=== PATIENT | male | born 1965 | race Caucasian/White ===

== ENCOUNTER 2017-08-18 06:54 | Outpatient (CLI) | payer OTHER ==
[~2017-08-18 06:54] MED LIST: AVAPRO75 MG; LIPIODOL10 ML; LIPITOR20 MG; PNEU16DI2
== END 2017-08-18 07:35 | disposition home or self-care (01) ==
LOC: LAB 06:54
DX: Z12.11 Encounter for screening for malignant neoplasm of colon (principal); N39.0 Urinary tract infection, site not specified; E78.1 Pure hyperglyceridemia; I10 Essential (primary) hypertension; E78.00 Pure hypercholesterolemia, unspecified; E03.8 Other specified hypothyroidism; E11.9 Type 2 diabetes mellitus without complications; E29.1 Testicular hypofunction

== ENCOUNTER 2021-03-13 06:47 | Outpatient (CLI) | payer OTHER | END 2021-03-13 07:04 | disposition home or self-care (01) | LOC: LAB 06:47 | PROVIDERS: ATTEND Internal Medicine Cardiovascular Disease | DX: I10 Essential (primary) hypertension (principal); N39.0 Urinary tract infection, site not specified; E11.9 Type 2 diabetes mellitus without complications; E03.8 Other specified hypothyroidism; E78.2 Mixed hyperlipidemia; E78.1 Pure hyperglyceridemia ==

== ENCOUNTER 2021-08-08 07:50 | Outpatient (CLI) | payer OTHER | END 2021-08-08 08:02 | disposition home or self-care (01) | LOC: LAB 07:50 | PROVIDERS: ATTEND Internal Medicine Cardiovascular Disease | DX: E29.1 Testicular hypofunction (principal); E23.0 Hypopituitarism; E03.8 Other specified hypothyroidism; Z79.890 Hormone replacement therapy ==

== ENCOUNTER 2021-11-11 07:23 | Outpatient (CLI) | payer OTHER | END 2021-11-11 07:25 | disposition home or self-care (01) | LOC: EDBD 07:23 → NUCLEAR 07:23 | PROVIDERS: ATTEND Internal Medicine Cardiovascular Disease | DX: I25.9 Chronic ischemic heart disease, unspecified (principal) | CPT/HCPCS: 78452; 93017; A9500 ==

== ENCOUNTER 2023-12-31 15:56 | Inpatient (IN) | payer OTHER ==
[~2023-12-31] VITALS: Ht 188 cm; Wt 225.0 kg
[2023-12-31] MEDS ORDERED: TAMS0.4C (16:00)
[2023-12-31] MEDS ORDERED: 0.9 % SODIUM CHLORIDE 1,000 ML IV SCH (16:45)
[2023-12-31 17:19] LABS: HEMATOCRIT 43.3 % (39.0-48.0); MEAN CELL VOLUME 87.4 fL (80.0-100.00); MEAN CORPUSCULAR HEMOGLOBIN 30.4 pg (27.00-32.0); MEAN CORPUSCULAR HGB CONC 34.8 g/dl (32.0-36.0); PLATELET COUNT 261 K/uL (150-450); RED BLOOD COUNT 4.95 M/uL (4.00-6.00); RED CELL DISTRIBUTION WIDTH 13.4 % (11.5-14.5)
[2023-12-31 17:25] LABS: ERYTHROCYTE SEDIMENTATION RATE 15 mm/hr
[2023-12-31 17:36] LABS: INR 1.09; PARTIAL THROMBOPLASTIN TIME 30.6 SECONDS (22.0-34.0); PROTHROMBIN TIME 11.8 SECONDS (9.0-11.5)
[2023-12-31 17:45] LABS: URINE APPEARANCE Cloudy; URINE BILIRRUBIN Moderate (NEGATIVE); URINE BLOOD Negative; URINE COLOR Dark Yellow; URINE GLUCOSE Negative (NEGATIVE); URINE LEUKOCYTE Trace; URINE NITRATE Negative
[2023-12-31 17:46] LABS: URINE BACTERIA 50.3 uL (0.0-1933); URINE EPITHELIAL CELLS 21.6 uL (0.0-38.8); URINE RBC 83.3 uL (0.0-20.8); URINE WBC 4.4 uL (0.0-23.2)
[2023-12-31 17:48] LABS: ALBUMIN 4.1 gm/dL (3.4-5.0); BILIRUBIN TOTAL 0.98 mg/dL (0.3-1.2); CALCIUM 9.5 mg/dL (8.5-10.1); CREATININE SERUM 0.98 mg/dL (0.70-1.30); GFR 78.28; POTASSIUM 3.66 mEq/L (3.5-5.1); TOTAL PROTEIN 8.1 gm/dL (6.4-8.2)
[2023-12-31 18:08] LABS: URINE CRYSTALS MODERATE /HPF; URINE KETONE 40 (NEGATIVE); URINE MUCUS MODERATE; URINE PROTEIN 100 (NEGATIVE)
[2023-12-31 18:16] LABS: C-REACTIVE PROTEIN 22.2 MG/DL (0.00-0.29)
[2023-12-31] MEDS ORDERED: CIPROFLOXACIN IN 5 % DEXTROSE 400 MG/200 ML PIGGYBAG IV STA (18:18)
[2023-12-31] MEDS ORDERED: CIPROFLOXACIN IN 5 % DEXTROSE 400 MG/200 ML PIGGYBAG IV ONE (18:25)
[2023-12-31] MEDS ORDERED: SODIUM CHLORIDE 0.45 % 1,000 ML IV SCH (19:15)
[2023-12-31] MEDS ORDERED: MORPHINE SULFATE 4 MG/ML VIAL IV PRN (19:30)
[2023-12-31] MEDS ORDERED: ACETAMINOPHEN 500 MG GEL..CAP PO PRN (19:30)
[2023-12-31] MEDS ORDERED: ONDANSETRON 4 MG TAB.RAPDIS PO PRN (19:30)
[2023-12-31] MEDS ORDERED: MORPHINE SULFATE 4 MG/ML VIAL IV SCH (20:00)
[2023-12-31] MEDS ORDERED: ORPHENADRINE CITRATE 30 MG/ML AMPUL IM STA (20:07)
[2023-12-31] MEDS ORDERED: CIPROFLOXACIN IN 5 % DEXTROSE 200 ML IV SCH (21:00)
[2023-12-31 22:00] VITALS: BP 128/60; O2SAT 98
[2023-12-31 22:55] VITALS: BP 128/60
[2023-12-31 23:00] VITALS: BP 116/64; O2SAT 96
[2024-01-01 02:05] VITALS: BP 124/75
[2024-01-01 08:28] VITALS: BP 138/57
[2024-01-01] MEDS ORDERED: FAMOtidine 20 MG TABLET PO SCH (09:00)
[2024-01-01] MEDS ORDERED: LACTOBACILLUS ACIDOPHILUS 1 CAP CAP PO SCH (09:00)
[2024-01-01] MEDS ORDERED: NASAL MIST126 ML NASAL (13:32)
[2024-01-01] MEDS ORDERED: CIPRO500 MG PO (13:38)
[2024-01-01] MEDS ORDERED: NORFLEX100MG PO (13:38)
[2024-01-01] MEDS ORDERED: CELEBREX200MG PO (13:38)
[2024-01-01] MEDS ORDERED: PERCOCET 5-3251 EACH PO (13:38)
== END 2024-01-01 13:50 | disposition home or self-care (01) | DRG 694 ==
LOC: ER 15:57 → MEDJ 20:38
PROVIDERS: Emergency Medicine; ADMIT Internal Medicine Cardiovascular Disease; ATTEND Internal Medicine Cardiovascular Disease
PROC: BW21ZZZ Computerized Tomography (CT Scan) of Abdomen and Pelvis (ICD-10-PCS; principal; 2023-12-31)
DX: N20.1 Calculus of ureter (principal); N39.0 Urinary tract infection, site not specified; B02.23 Postherpetic polyneuropathy; Z20.822 Contact with and (suspected) exposure to COVID-19; N20.0 Calculus of kidney; Z98.890 Other specified postprocedural states; M25.551 Pain in right hip; S73.045 Central dislocation of left hip; S73.004D Unspecified dislocation of right hip, subsequent encounter

== ENCOUNTER → 2024-05-24 | Outpatient (CLI) | payer OTHER ==
[~2024-05-24] MED LIST changes: +CELEBREX200MG PO; +CIPRO500 MG PO; +NASAL MIST126 ML NASAL; +NORFLEX100MG PO; +PERCOCET 5-3251 EACH PO; +TAMS0.4C
== END | disposition home or self-care (01) ==
LOC: TOM 15:55
PROVIDERS: ATTEND Urology
DX: N20.1 Calculus of ureter (principal)

== ENCOUNTER 2024-06-23 07:03 | Outpatient (CLI) | payer OTHER | END 2024-06-23 07:04 | disposition home or self-care (01) | LOC: NUCLEAR 07:03 | PROVIDERS: ATTEND Internal Medicine | DX: I20.9 Angina pectoris, unspecified (principal) ==

== ENCOUNTER 2024-08-04 13:06 | Outpatient (CLI) | payer OTHER | END 2024-08-04 13:10 | disposition home or self-care (01) | LOC: RAD 13:06 | PROVIDERS: ATTEND Urology | DX: N20.0 Calculus of kidney (principal); N20.1 Calculus of ureter; R31.1 Benign essential microscopic hematuria ==